=== PATIENT | male | born 1975 | race Caucasian/White ===

== ENCOUNTER 2016-11-01 23:33 | Emergency (ER) | payer OTHER ==
[~2016-11-01] VITALS: Ht 175.3 cm; Wt 90.8 kg
[2016-11-01 23:37] VITALS: BP 142/93; PULSE 87; RESP 16; TEMP 97.2; O2SAT 98
--- NOTE | 2016-11-02 00:20 | PD ---
HPI Chief Complaint: Oral / Dental Pain or Problem Time Seen by Provider: 00:10 Travel History International Travel<30 days: No Contact w/Intl Traveler<30days: No History of Present Illness HPI 41-year-old male arrives with right lower dentalgia for about 2 days. Evidently his dentist initiated a root canal procedure 11 days prior. The patient was sent out of the office with penicillin for one week. He was given extra PCN as the dentist knew the patient was coming here for [place]. The patient states he has been taking penicillin for 2 days with no improvement. He has been chewing food with his left dentition however accidentally bit down some food on the right side yesterday. Since then he's had markedly worse pain. He has chronic back pain and takes Motrin, tramadol, Flomax, and sertraline. He's had no fever. Pain is worse with palpation. PFSH Social History Tobacco Use: Yes Allergies-Medications (Allergen,Severity, Reaction): Coded Allergies: No Known Allergies (Unverified , 11/02/16) Reported Meds & Prescriptions Reported Meds & Active Scripts Active Lortab (Hydrocodone-Acetaminophen) 7.5-325 Mg Tab 1-2 Tab PO Q6H PRN Penicillin V Potassium 500 Mg Tab 500 Mg PO Q6H 7 Days Reported Sertraline (Sertraline HCl) 100 Mg Tab 100 Mg PO DAILY Flomax (Tamsulosin HCl) 0.4 Mg Cap 0.4 Mg PO HS Propranolol (Propranolol HCl) 10 Mg Tab 10 Mg PO Q12HR Zoloft (Sertraline HCl) 100 Mg Tab 100 Mg PO DAILY Tylenol Extra Strength (Acetaminophen) 500 Mg Tab 1,000 Mg PO Q4-6H PRN Tramadol (Tramadol HCl) 50 Mg Tab 50 Mg PO BID PRN Ibuprofen 800 Mg Tab 800 Mg PO Q8H PRN Review of Systems General / Constitutional: No: Fever HENT: Positive: Dental Difficulties Physical Exam Narrative GENERAL: 41 yo M, WNWD SKIN: Warm and dry. HEAD: Atraumatic. Normocephalic. EYES: Pupils equal and round. No scleral icterus. No injection or drainage. ENT: No nasal bleeding or discharge. Mucous membranes pink and moist. R lower first premolar partially fractured with marked TTP. No abscess/facial asymmetry swelling. NECK: Trachea midline. No JVD. CARDIOVASCULAR: Regular rate and rhythm. No murmur appreciated. Data Data Last Documented VS Vital Signs Date Time Temp Pulse Resp B/P Pulse Ox O2 Delivery O2 Flow Rate FiO2 11/02/16 00:39 151/98 11/01/16 23:37 97.2 87 16 98 vs reviewed Orders Penicillin V Potassium (Veetids) (11/02/16 00:30) Acetamin-Hydrocod 325-5 Mg ([place] 5-325 (11/02/16 00:30) MDM Medical Decision Making Medical Screen Exam Complete: Yes Emergency Medical Condition: Yes Differential Diagnosis dental carry, dental fracture, dental abscess Narrative Course We'll extend PCN script and provide Lortab. Strict precautions against any motorcycle operation while under the influence of Lortab discussed; absolutely no alcohol to be mixed with Lortab; no Tramadol while taking Lortab. Pt verbalized understanding. His significant other will drive the patient home to [place]. Diagnosis Primary Impression: Dentalgia Referrals: Dentist 2 days Additional Instructions: You have a choice when it comes to health care, and we are glad that you chose [facility]. Hopefully, we have met your expectations on today's visit. You are welcome to return to [facility] at any time, as we are committed to meeting the health care needs of our community. Med/Other Pt SpecificInfo: Prescription(s) given Scripts Hydrocodone-Acetaminophen (Lortab)7.5-325 Mg Tab1-2 Tab PO Q6H PRN (PAIN SCALE 6 TO 10) #15 TAB Ref 0 Prov:Juan Manuel Lopez MD 11/02/16 Penicillin V Potassium 500 Mg [id number] Mg PO Q6H 7 Days Ref 0 Prov:Juan Manuel Lopez MD 11/02/16 Disposition: DISCHARGE HOME Condition: Stable Juan Manuel Lopez MD Nov 02, 2016 00:20
[2016-11-02] MEDS ORDERED: PROP10TA6 PO (00:27)
[2016-11-02] MEDS ORDERED: ACET-703 PO (00:27)
[2016-11-02] MEDS ORDERED: TAMS5CAP PO (00:27)
[2016-11-02] MEDS ORDERED: ZOLO100T PO (00:27)
[2016-11-02] MEDS ORDERED: SERT-129 PO (00:27)
[2016-11-02] MEDS ORDERED: IBUP800T23 PO (00:27)
[2016-11-02] MEDS ORDERED: TRAM50TA PO (00:27)
[2016-11-02] MEDS ORDERED: HYDR-3534 PO (00:29)
[2016-11-02] MEDS ORDERED: PENI500T PO (00:29)
[2016-11-02] MEDS ORDERED: PENICILLIN V POTASSIUM 500 MG TAB PO ONE (00:30)
[2016-11-02] MEDS ORDERED: ACETAMINOPHEN/HYDROcodone 325 MG/5 MG TAB PO ONE (00:30)
[2016-11-02 00:39] VITALS: BP 151/98
== END 2016-11-02 00:46 | disposition home or self-care (01) ==
LOC: PHED 23:33
DX: K08.89 Other specified disorders of teeth and supporting structures (principal); Z72.0 Tobacco use
CPT/HCPCS: 99282